=== PATIENT | female | born 2000 | race Caucasian/White ===

== ENCOUNTER 2022-06-06 14:25 | Inpatient (IN) | payer MEDICAID, OTHER ==
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
[2022-06-06] MEDS ORDERED: LORazepam 2 MG/ML INJ IM STA (17:34)
[2022-06-06] MEDS ORDERED: ZIPRASIDONE 20 MG VIAL IM STA (17:34)
[2022-06-06] MEDS ORDERED: MAG HYDROX/AL HYDROX/SIMETH 30 ML CUP PO PRN (19:54)
[2022-06-06] MEDS ORDERED: MAGNESIUM HYDROXIDE 2,400 MG/10 ML CUP PO PRN (19:54)
[2022-06-06] MEDS ORDERED: chlorproMAZINE 25 MG/ML 2 ML AMP IM PRN (19:59)
[2022-06-06] MEDS ORDERED: chlorproMAZINE 25 MG TAB PO PRN (19:59)
[2022-06-06] MEDS ORDERED: LORazepam 2 MG/ML INJ IM PRN (19:59)
[2022-06-07 05:44] LABS: Appearance,Urine Clear (Clear); Bilirubin,Urine Negative (Negative); Blood,Urine Negative (Negative); Color,Urine Yellow; Glucose,Urine (UA) Negative (Negative); Ketones,Urine 3+ (Negative); Leukocyte Esterase,Urine Negative (Negative); Nitrite,Urine Negative (Negative); PH, Urine 6.5 (5.0-8.0); Protein,Urine Trace (Negative); Specific Gravity,Urine 1.008 (1.001-1.035); Urobilinogen,Urine <2.0 mg/dL (<2.0)
[2022-06-07] MEDS: NICOTINE 14MG/24HR PATCH TRANSDERM SCH (09:28)
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
[2022-06-07 13:58] LABS: Urine Alcohol Negative (Negative); Urine Barbiturate Negative (Negative); Urine Cocaine Negative (Negative); Urine Methadone Negative (Negative); Urine Opiates Negative (Negative); Urine Phencyclidine Negative (Negative)
[2022-06-07 15:03] LABS: Basophils % (A) 0 %; Eosinophils % (A) 0 %; HCT 44.5 % (34.0-46.0); HGB 15.1 gm/dL (11.4-16.0); Lymphocytes # (A) 1.9 k/uL (1.0-4.8); Lymphocytes % (A) 20 %; MCH 28.8 pg (25.0-35.0); MCHC 33.9 g/dL (31.0-37.0); Mean Platelet Volume 7.5; Monocytes # (A) 0.5 k/uL (0-1.0); Monocytes % (A) 6 %; Neutrophils # (A) 6.7 k/uL (1.3-7.7); Neutrophils % (A) 72 %; Platelet Count 316 k/uL (150-450); RBC 5.23 m/uL (3.80-5.40); RDW 13.3 % (11.5-15.5); WBC 9.3 k/uL (3.8-10.6)
[2022-06-07 15:26] LABS: ALT 68 U/L (4-34); AST 70 U/L (14-36); African American GFR (CKD) >90 (>60 ml/min/1.73 sqM); Alkaline Phosphatase 57 U/L (38-126); Anion Gap 12 mmol/L; Blood Urea Nitrogen 7 mg/dL (7-17); Calcium 9.8 mg/dL (8.4-10.2); Carbon Dioxide 28 mmol/L (22-30); Chloride 102 mmol/L (98-107); Glucose 82 mg/dL (74-99); Non-African American GFR(CKD) >90 (>60 ml/min/1.73 sqM); Potassium 3.8 mmol/L (3.5-5.1); Sodium 142 mmol/L (137-145); Total Bilirubin 0.5 mg/dL (0.2-1.3); Total Protein 8.3 g/dL (6.3-8.2)
[2022-06-07] MEDS: LITHIUM CARBONATE 300 MG CAP PO SCH (21:15)
[2022-06-07] MEDS: risperiDONE 0.5 MG TAB PO SCH (21:15)
--- NOTE | 2022-06-07 23:56 | P.CONS ---
History of Present Illness - Reason for Consult Consult date: 06/07/22 - History of Present Illness The patient is a 21-year-old female with no known PMH who was brought into the emergency room under police custody and was petitioned due to strange behavior. The patient was admitted to the mental health unit where she was seen and evaluated with the mental health unit RN Quincy jerome. The patient reports that she had been going through a lot recently with breaking up with her boyfriend and a difficult relationship with her mother and had been feeling overwhelmed. She reports vape use and also using recreational marijuana. Reports recreational marijuana use. Denied alcohol use. Reports left hand pain at the time of interview, which she attributes to her when she was arrested and handcuffed. Review of systems: Pertinent positives and negatives as discussed in HPI, a complete review of systems was performed and all other systems are negative. Physical examination: General: non toxic, no distress, appears at stated age, normal weight Derm: no unusual rashes/lesions, no unusual ecchymoses, warm, dry Head: atraumatic, normocephalic, symmetric Eyes: EOMI, no lid lag, anicteric sclera ENT: Nose and ears atraumatic, no thrush, no pharyngeal erythema Neck: trachea midline, supple Mouth: no lip lesion, mucus membranes moist Cardiovascular: S1S2 reg, no murmur, no edema Lungs: CTA bilateral, no rhonchi, no rales , no accessory muscle use Abdominal: soft, nontender to palpation, no guarding Ext: no gross muscle atrophy, no contractures, left base of the thumb tenderness noted with de Quervain's sign negative with normal range of motion Neuro: No gross focal neuro deficits noted Psych: Alert, oriented, guarded affect Assessment: Left base of the thumb tenderness Low TSH Psychosis Marijuana use Imaging: None performed Data Review: Laboratory evaluation was reviewed and was remarkable for hemoglobin 15.1, platelets 316, sodium 142, potassium 3.8, AST 70, ALT 68, and TSH 0.316 with urine toxicology positive for cannabinoids. Plan: Obtain left hand x-ray Advised the patient on importance of cessation for marijuana use Check T3 and T4 levels Defer management of psychosis to the primary psychiatry service Thank you for allowing us to participate in the care of this patient. We will follow peripherally. Do not hesitate to contact us with questions. Someone can be reached from the [facility] hospitalist group at all hours of the day at [phone]. Past Medical History Past Medical History: Unable to Obtain History of Any Multi-Drug Resistant Organisms: Unobtainable Past Surgical History: Unable to Obtain Past Psychological History: Unable to Obtain Smoking Status: Current every day smoker Past Alcohol Use History: Occasional Past Drug Use History: Unable to Obtain, Marijuana - Past Family History Mother Family Medical History: COPD Medications and Allergies Home Medications Medication Instructions Recorded Confirmed Type No Known Home Medications 06/06/22 06/06/22 History Allergies Allergy/AdvReac Type Severity Reaction Status Date / Time Penicillins Allergy Rash/Hives Verified 06/06/22 15:19 Physical Exam Vitals: Vital Signs Temp Pulse Resp BP Pulse Ox 06/07/22 07:11 98.0 F 127 H 18 127/74 97 Intake and Output 06/07/22 06/07/22 06/08/22 14:59 22:59 06:59 Other: Weight 55.338 kg Results CBC & Chem 7: 06/07/22 14:47 06/07/22 14:47 Labs: Abnormal Lab Results - Last 24 Hours (Table) 06/07/22 06/07/22 06/07/22 Range/Units 05:30 05:30 14:47 AST 70 H (14-36) U/L ALT 68 H (4-34) U/L Total Protein 8.3 H (6.3-8.2) g/dL TSH 0.316 L (0.465-4.680) mIU/L Urine Protein Trace H (Negative) Urine Ketones 3+ H (Negative) U Cannabinoids Screen Positive A (Negative)
[2022-06-08] MEDS: ACETAMINOPHEN TAB 325 MG TAB PO PRN (00:50)
[2022-06-08] MEDS: LORazepam 1 MG TAB PO PRN (00:55)
[2022-06-08 03:53] LABS: T4, Free (Free Thyroxine) 1.84 ng/dL (0.78-2.19)
[2022-06-08] MEDS: NICOTINE 14MG/24HR PATCH TRANSDERM SCH (09:05)
[2022-06-08] MEDS: LITHIUM CARBONATE 300 MG CAP PO SCH ×2 (09:06→20:49)
[2022-06-08] MEDS: risperiDONE 0.5 MG TAB PO SCH ×2 (09:06→20:49)
[2022-06-08] MEDS ORDERED: NICOTINE 14MG/24HR PATCH TRANSDERM PRN (11:07)
--- NOTE | 2022-06-08 11:08 | P.PN ---
Progress Note - Text Progress Note Date: 06/08/22 Interval History: Patient was seen attending group and was directable and agreeable to speak with senior grant writer in the office. Patient refuse medications. She continues to be tangential in thought and speech. She does express concerns about being in any legal trouble however was educated on the civil mental health court process. She is denying any suicidal or homicidal ideation, intention, and/or plan. She is denying any auditory or visual hallucinations. She continues to present with some overt paranoia. She goes on significant lengths regarding whether it was "police or peace officers" that brought her to the hospital. She also reports that her mother attempted to give her some medications however she only lick them prior to this admission. She is unable to verbalize what exactly she "licked." She reports no issues regarding her sleep or her appetite. Patient states she has been fasting for Ramadan. Mental Status Exam: General Appearance: Patient appears to be stated age is alert, directable, and attempts to cooperate. Behavior: Patient is calmly seated without any agitated behavior. Patient began crying when informed that her gown was not properly on. She states was very embarassed. Present in the room was a female professor of nursing and the female hank brewer educator. Speech: Patient's speech is fluent and nonpressured. Mood/Affect: Mood is "feeling okay." Patient does display some mood lability including crying and laughter. Suicidality/Homicidality: Patient is denying any suicidal or homicidal ideation, intention, and/or plan. Perceptions: Patient denies any visual hallucinations and denies any auditory hallucinations Though content/process: Flight of ideas, loose associations, tangential. Memory and concentration: AOX3, grossly intact for the purposes of this session Judgment and insight: Poor Vital Signs Temp 98.1 F 06/08/22 01:56 Pulse 99 06/08/22 09:03 Resp 16 06/08/22 01:56 BP 132/89 06/08/22 09:03 Pulse Ox 99 06/08/22 01:56 FiO2 Intake & Output 06/07/22 06/08/22 06/08/22 18:59 06:59 18:59 Weight 55.338 kg Laboratory Results - Last 24 Hours 06/07/22 06/07/22 06/07/22 05:30 14:47 14:47 WBC 9.3 RBC 5.23 Hgb 15.1 Hct 44.5 MCV 85.0 MCH 28.8 MCHC 33.9 RDW 13.3 Plt Count 316 MPV 7.5 Neutrophils % 72 Lymphocytes % 20 Monocytes % 6 Eosinophils % 0 Basophils % 0 Neutrophils # 6.7 Lymphocytes # 1.9 Monocytes # 0.5 Eosinophils # 0.0 Basophils # 0.0 Sodium Potassium Chloride Carbon Dioxide Anion Gap BUN Creatinine Est GFR (CKD-EPI)AfAm Est GFR (CKD-EPI)NonAf Glucose Estimated Ave Glu mg/dL 108 Hemoglobin A1c 5.4 Calcium Total Bilirubin AST ALT Alkaline Phosphatase Total Protein Albumin TSH Free T4 Free T3 pg/mL Urine Opiates Screen Negative Urine Methadone Screen Negative Ur Propoxyphene Screen Negative Urine Barbiturates Negative Ur Phencyclidine Scrn Negative Ur Amphetamine Screen Negative U Benzodiazepines Scrn Negative Urine Cocaine Screen Negative U Cannabinoids Screen Positive A Urine Alcohol Negative 06/07/22 06/07/22 14:47 14:47 WBC RBC Hgb Hct MCV MCH MCHC RDW Plt Count MPV Neutrophils % Lymphocytes % Monocytes % Eosinophils % Basophils % Neutrophils # Lymphocytes # Monocytes # Eosinophils # Basophils # Sodium 142 Potassium 3.8 Chloride 102 Carbon Dioxide 28 Anion Gap 12 BUN 7 Creatinine 0.66 Est GFR (CKD-EPI)AfAm >90 Est GFR (CKD-EPI)NonAf >[address] Glu mg/dL Hemoglobin A1c Calcium 9.8 Total Bilirubin 0.5 AST 70 H ALT 68 H Alkaline Phosphatase 57 Total Protein 8.3 H Albumin 5.0 TSH 0.316 L Free T4 1.84 Free T3 pg/mL 3.7 Urine Opiates Screen Urine Methadone Screen Ur Propoxyphene Screen Urine Barbiturates Ur Phencyclidine Scrn Ur Amphetamine Screen U Benzodiazepines Scrn Urine Cocaine Screen U Cannabinoids Screen Urine Alcohol Assessment: Bipolar 1 disorder, manic episode Cannabis use disorder Other psychoactive substance use disorder Nicotine dependence Plan: -Patient continues to meet criteria for inpatient psychiatric admission for symptom stabilization and safety. The patient has been petitioned and certified. She is scheduled to meet with the commonwealth attorney on 06/11/2022. -Medications: [place] 300 mg by mouth twice a day for mood stabilization Risperdal 0.5 mg by mouth twice a day with stabilization/psychosis -Patient has been refusing medications. She was encouraged to try the medications today. -When necessary Ativan and Thorazine for agitation/aggression. (Prior to admission, the patient required multiple police officers to bring her into the hospital due to her severe agitation). -NRT - nicotine patch PRN -SW on board for discharge planning. Encouraged the patient to participate in milieu.
--- NOTE | 2022-06-08 20:17 | XR ---
EXAMINATION TYPE: XR hand complete LT DATE OF EXAM: 06/08/2022 COMPARISON: NONE HISTORY: Pain TECHNIQUE: 3 views FINDINGS: The metacarpals appear intact. I see no fracture nor dislocation. The thumb appears intact. There are no erosions. IMPRESSION: Negative left hand exam.
[2022-06-09] MEDS: LORazepam 1 MG TAB PO PRN ×2 (03:20→21:12)
[2022-06-09] MEDS: LITHIUM CARBONATE 300 MG CAP PO SCH ×2 (09:55→21:12)
[2022-06-09] MEDS: risperiDONE 0.5 MG TAB PO SCH ×3 (09:55→21:12)
[2022-06-10] MEDS: LORazepam 1 MG TAB PO PRN (03:21)
[2022-06-10] MEDS: risperiDONE 0.5 MG TAB PO SCH ×2 (10:26→19:52)
[2022-06-10] MEDS: LITHIUM CARBONATE 300 MG CAP PO SCH ×2 (10:26→19:52)
[2022-06-10 13:43] LABS: ALT 34 U/L (4-34); AST 30 U/L (14-36)
--- NOTE | 2022-06-10 16:47 | P.PN ---
Progress Note - Text Progress Note Date: 06/09/22 Interval history: Patient was seen in her room and was directable and agreeable to speak with production underwriter. States that she is doing "a lot better" and states that her appetite has improved. She denies poor sleep, paranoia, agitation.. At this time patient denies any suicidal or homicidal ideations intent or plan. Denies any Auditory or visual hallucinations. Patient denies any side effects from the medications and has been compliant with meds. Mental status exam: General Appearance: [Patient appears to be stated age is alert, directable, and cooperative.] Behavior: [No agitated behavior. Patient is calm and directable] Speech: Patient's speech is fluent and nonpressured. Mood/Affect: Mood is "pretty good", affect is constricted Suicidality/Homicidality: Patient denies having any suicidal or homicidal ideation intent or plan. Perceptions: Patient denies any auditory or visual hallucinations. Though content/process: [There is no evidence of any delusional thought content and thought process is linear and goal-directed.] Memory and concentration: AOX3, grossly intact for the purposes of this session Judgment and insight: improving mildly Assessment/Plan: Continue with current diagnosis. Patient continues to meet criteria for inpatient psychiatric admission for symptom stabilization and safety.[Patient will be maintained on current psychotropic medication regimen.] Monitor for medication compliance and for any psychotropic medication side effects. Will continue to monitor ongoing response to treatment. Encouraged participation in milieu.
--- NOTE | 2022-06-10 16:48 | P.PN ---
Progress Note - Text Interval history: Patient was seen in her room and was directable and agreeable to speak with global technical writer. States that she is doing "good" denies agitation, paranoia, poor sleep, poor appetite. At this time patient denies any suicidal or homicidal ideations intent or plan. Denies any Auditory or visual hallucinations. Patient has been compliant with meds but reports the following side effects: Palpitations, nausea, diarrhea. Mental status exam: General Appearance: [Patient appears to be stated age is alert, directable, and cooperative.] Behavior: [No agitated behavior. Patient is calm and directable] Speech: Patient's speech is fluent and nonpressured. Mood/Affect: Mood is "good", affect is congruent Suicidality/Homicidality: Patient denies having any suicidal or homicidal ideation intent or plan. Perceptions: Patient denies any auditory or visual hallucinations. Though content/process: [There is no evidence of any delusional thought content and thought process is linear and goal-directed.] Memory and concentration: AOX3, grossly intact for the purposes of this session Judgment and insight: improving mildly Assessment/Plan: Continue with current diagnosis. Patient continues to meet criteria for inpatient psychiatric admission for symptom stabilization and safety.[Patient will be maintained on current psychotropic medication regimen.] Repeat LFTs. Monitor for medication compliance and for any psychotropic medication side effects. Will continue to monitor ongoing response to treatment. Encouraged participation in milieu.
[2022-06-10] MEDS: ACETAMINOPHEN TAB 325 MG TAB PO PRN (18:51)
[2022-06-11] MEDS: LITHIUM CARBONATE 300 MG CAP PO SCH ×2 (09:20→20:38)
[2022-06-11] MEDS: risperiDONE 0.5 MG TAB PO SCH ×2 (11:10→20:38)
--- NOTE | 2022-06-11 11:38 | P.PN ---
Progress Note - Text Progress Note Date: 06/11/22 Interval History: Patient was seen attending group and was directable and agreeable to speak with property underwriter in the office. The patient is currently not endorsing any suicidal or homicidal ideation, intention, and/or plan. She is not reporting any auditory or visual hallucinations. She denies any paranoia or other delusions at this time. The patient is unable to recall most of her manic episode however acknowledges that she was in a manic state. She does express embarrassment for her actions. She also states that she plans to defer mental health court and agreed to treatment. She has been adherent with her medications and is not endorsing any significant side effects. Reports no issues regarding her sleep or her appetite. She is denying any grandiosity, racing thoughts, mood lability, or increased energy. She reports that she would like to sign a release of information to allow the treatment team to speak with her partner. Mental Status Exam: General Appearance: Patient appears to be stated age is alert, directable, and attem normal psychomotor activity today. Pts to cooperate. Behavior: Patient is calmly seated without any agitated behavior. Speech: Patient's speech is fluent and nonpressured. Mood/Affect: Mood is "feeling pretty good." Affect is euthymic and bright Suicidality/Homicidality: Patient is denying any suicidal or homicidal ideation, intention, and/or plan. Perceptions: Patient denies any visual hallucinations and denies any auditory hallucinations Though content/process: Linear and logical in short conversation. Memory and concentration: AOX3, grossly intact for the purposes of this session Judgment and insight: Mildly improving Vital Signs Temp 97.2 F L 06/11/22 04:33 Pulse 89 06/11/22 04:33 Resp 16 06/11/22 04:33 BP 141/78 06/11/22 04:33 Pulse Ox 99 06/11/22 04:33 FiO2 Intake & Output 06/10/22 06/11/22 06/11/22 18:59 06:59 18:59 Weight 55.6 kg Laboratory Results - Last 24 Hours 06/10/22 13:15 AST 30 ALT 34 Assessment: Bipolar 1 disorder, manic episode Cannabis use disorder Other psychoactive substance use disorder Nicotine dependence Plan: -Patient continues to meet criteria for inpatient psychiatric admission for symptom stabilization and safety. The patient has been petitioned and certified. She is scheduled to meet with the estate attorney on 06/11/2022. Patient states she plans to defer mental health court. -Medications: [place] 300 mg by mouth twice a day for mood stabilization. [place] level will be drawn today. Risperdal 0.5 mg by mouth twice a day with stabilization/psychosis -When necessary Ativan and Thorazine for agitation/aggression. (Prior to admission, the patient required multiple police officers to bring her into the hospital due to her severe agitation). -NRT - nicotine patch PRN -SW on board for discharge planning. Encouraged the patient to participate in milieu.
[2022-06-11 12:41] VITALS: BMI 18.1
[2022-06-11] MEDS: LORazepam 1 MG TAB PO PRN (23:20)
[2022-06-12 06:38] VITALS: BP 132/66; PULSE 86; RESP 18; TEMP 98
[2022-06-12] MEDS: LITHIUM CARBONATE 300 MG CAP PO SCH (07:57)
[2022-06-12] MEDS: risperiDONE 0.5 MG TAB PO SCH (07:57)
[2022-06-12 11:20] LABS: HGB 15.4 gm/dL (11.4-16.0); MCH 28.7 pg (25.0-35.0); MCHC 32.7 g/dL (31.0-37.0); MCV 87.9 fL (80.0-100.0); Mean Platelet Volume 7.9; Platelet Count 229 k/uL (150-450); RBC 5.35 m/uL (3.80-5.40); RDW 13.6 % (11.5-15.5); WBC 7.4 k/uL (3.8-10.6)
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
== END 2022-06-12 12:11 | disposition home or self-care (01) | DRG 753 ==
LOC: EC 14:25 → 3MHU 19:50
PROVIDERS: ADMIT Psychiatry & Neurology Psychiatry; ATTEND Psychiatry & Neurology Psychiatry
DX: F31.2 Bipolar disorder, current episode manic severe with psychotic features (principal); F12.90 Cannabis use, unspecified, uncomplicated; F17.200 Nicotine dependence, unspecified, uncomplicated; Z63.8 Other specified problems related to primary support group; Z81.8 Family history of other mental and behavioral disorders; Z20.822 Contact with and (suspected) exposure to COVID-19
CPT/HCPCS: 80053; 80178; 80306; 81003; 81025; 82075; 83036; 84436; 84439; 84443; 84450; 84460; 84480; 84481; 85025; 85027; 87635; 96372; 99285

== ENCOUNTER → 2023-07-01 | Outpatient (CLI) | payer MEDICAID, OTHER ==
--- NOTE | 2023-07-01 13:46 | XR ---
EXAMINATION TYPE: XR ankle complete RT DATE OF EXAM: 07/01/2023 COMPARISON: NONE HISTORY: 22-year-old female M65.9 SYNOVITIS AND TENOSYNOVITIS, UNSPECIFIED TECHNIQUE: 3 views FINDINGS: There is some loss of the distal tibiofibular overlap. Talar dome is intact. No acute fract ure, subluxation, or dislocation is seen. Subtalar joint align. Small delineation to the Achilles ten don. IMPRESSION: There is widening at the distal tibiofibular overlap. Correlate for history of high ankle sprain/prio r syndesmotic injury. Otherwise, no acute osseous abnormality seen.
== END | disposition home or self-care (01) ==
LOC: RADXRMAIN 12:26
PROVIDERS: ATTEND Family Medicine
DX: M65.9 Synovitis and tenosynovitis, unspecified (principal)

== ENCOUNTER → 2023-12-23 | Outpatient (CLI) | payer OTHER ==
--- NOTE | 2023-12-23 12:28 | XR ---
EXAMINATION TYPE: XR chest 2V DATE OF EXAM: 12/23/2023 COMPARISON: NONE TECHNIQUE: PA and lateral views submitted. HISTORY: Chest pain FINDINGS: The lungs are clear and there is no pneumothorax, pleural effusion, or focal pneumonia. Heart size normal and no overt failure. Osseous structures demonstrate hypertrophic and degenerative changes of the spine. IMPRESSION: 1. No acute process. [facility], , 12/23/2023 12:26 PM
== END | disposition home or self-care (01) ==
LOC: RADXRMAIN 12:03
PROVIDERS: ATTEND Internal Medicine
DX: R07.9 Chest pain, unspecified (principal)
CPT/HCPCS: 71046